=== PATIENT | female | born 1980 | race Caucasian/White ===

== ENCOUNTER 2024-06-29 17:00 | Emergency (ER) | payer OTHER, SELFPAY ==
--- NOTE | 2024-06-29 17:15 | ED_ITS ---
HPI - Fall General Chief Complaint: Fall Stated Complaint: FALL Time Seen by Provider: 06/29/24 17:04 Source: patient Mode of arrival: EMS Limitations: no limitations History of Present Illness HPI Narrative: This is a 43-year-old female who presents to the ED via EMS for chief complaint of ground level fall at a local convenience store. EMS reports patient appeared intoxicated and that her blood sugar was noted to be 28. She was given oral glucose and repeat blood sugar was up to 49 just prior to arrival. Patient admits to alcohol use today. Reports that she drank 10 beers, wine and liquor. Patient reports that she has no past medical history to speak of. Does not take any regular medications or blood glucose lowering medications. Reports that she has some spine pain from the fall today. She is unable to tell me the details of the fall. Denies recent illness or any further sites of pain or injury. Review of Systems Review of Systems: All systems as dictated in HPI Exam Narrative: GENERAL: Clinically intoxicated. Alcohol stains on her clothes. Conversational and cooperative HEAD: Normocephalic, atraumatic. EYES: PERRLA and EOMI. ENT: Nares clear, no rhinorrhea or epistaxis. Mucous membranes moist. Oropharynx without tonsillar hypertrophy exudate or other lesions. NECK: Supple. No adenopathy or masses. CHEST: No respiratory distress. Clear to auscultation. No wheezes rales or rhonchi HEART: Regular rate and rhythm. No murmur heard. Normal peripheral pulses. ABDOMEN: Soft, nontender, nondistended, normal active bowel sounds. MSK: Normal range of motion. No edema. SKIN: Warm, dry, no rash. NEURO: Clinically intoxicated. Slurring words. Alert and oriented x4. No focal deficits. PSYCH: Normal mood and affect. No SI or HI Course Vital Signs Vital signs: Vital Signs Temperature 97.8 F 06/29/24 17: Pulse Rate 100 06/29/24 17:28 Respiratory Rate 17 06/29/24 17:28 Blood Pressure 117/68 06/29/24 17:28 Pulse Oximetry 99 06/29/24 17:28 Temperature 97.8 F 06/29/24 17:28 Pulse Rate 100 06/29/24 17:28 Respiratory Rate 17 06/29/24 17:28 Blood Pressure 117/68 06/29/24 17:28 Pulse Oximetry 99 06/29/24 17:28 MDM - Fall MDM Narrative Medical decision making narrative: 43-year-old female presenting to the ED for alcohol intoxication and a fall. She arrives with stable vitals, alert oriented. During the course of the workup and after my initial examination, patient decided to elope from the department with her IV still in place. Security and police alerted. Lab Data 06/29/24 17:19 06/29/24 17:19 Labs: Lab Results 06/29/24 06/29/24 06/29/24 Range/Units 17:15 17:19 18:27 WBC 15.1 H (4.5-10.0) K/mm3 RBC 4.83 (4.2-5.4) M/mm3 Hgb 15.3 H (12.0-15.0) g/dL Hct 45.5 (37.0-47.0) % MCV 94.2 (80-100) fl MCH 31.7 (26-34) pg MCHC 33.6 (32-36) g/dl RDW 13.6 (11.5-14.5) % Plt Count 320 (150-375) k/mm3 MPV 9.4 (7.4-10.4) fl Immature Gran % (Auto) 0.3 (0-0.5) % Neut % (Auto) 65.6 (45.5-73.1) % Lymph % (Auto) 28.2 (18.3-44.2) % [place] % (Auto) 5.0 (2.6-8.5) % Eos % (Auto) 0.4 (0-4.4) % Baso % (Auto) 0.5 (0.2-1.2) % Lymph # (Auto) 4.24 H (0.9-3.2) K/mm3 [place] # (Auto) 0.8 H (0.1-0.6) K/mm3 Eos # (Auto) 0.1 (0-0.3) K/mm3 Baso # (Auto) 0.1 (0.0-0.1) K/mm3 Abs Immat Gran (auto) 0.04 H (0.00-0.031) K/mm3 Absolute Neuts (auto) 9.9 H (1.3-6.7) K/mm3 Absolute Nucleated RBC 0.000 (0.0-0.012) K/mm3 Nucleated RBC % 0.0 (0.0-0.2) % PT 14.7 (11.1-14.7) Seconds INR 1.1 APTT 23.6 (22.3-36.8) Seconds Sodium 145 (137-145) mmol/L Potassium 4.0 (3.4-5.0) mmol/L Chloride 108 H (98-107) mmol/L Carbon Dioxide 24 (22-30) mmol/L Anion Gap 13 H (4-12) mmol/L BUN 7 (7-17) mg/dL Creatinine 0.70 (0.7-1.0) mg/dL Estim Creat Clear Calc Not Reportable Estimated GFR > 60 (59 - ) Glucose 177 H (65-110) mg/dL POC Capillary Glucose 220 H (65-105) mg/dl Lactic Acid 1.7 (0.7-2.0) mmol/L Calcium 7.2 L (8.4-10.2) mg/dL Total Bilirubin 0.3 (0.2-1.3) mg/dL AST 20 (14-36) U/L ALT 13 (6-35) U/L Alkaline Phosphatase 49 (38-126) U/L Troponin I < 0.012 (0.000-0.034) ng/mL Total Protein 8.0 (6.3-8.2) g/dL Albumin 4.5 (3.5-5.1) g/dL TSH 0.373 L (0.465-4.680) uIU/mL Urine Color Yellow (Yellow) Urine Appearance Clear (Clear) Urine pH 5.5 (5.0-9.0) Ur Specific [place] 1.009 (1.001-1.035) Urine Protein Negative (Negative) mg/dL Urine Glucose (UA) 2+ H (Negative) mg/dL Urine Ketones Negative (Negative) mg/dL Ur Blood (Man) Negative (Negative) Urine Nitrate Negative (Negative) Urine Bilirubin Negative (Negative) Urine Urobilinogen 0.2 (<2.0) mg/dL Leukocyte Esterase Rfl Negative (Negative) FAUSTO/UL Urine RBC 0-2 (0-2) /hpf Urine WBC 0-5 (0-3) /hpf Ur Squamous Epith Cells Occasional (Few) /hpf Urine Bacteria 4+ H /hpf Urine Casts 0-2 Urine Opiates Screen Negative (Negative) Urine Methadone Screen Negative (Negative) Ur Barbiturates Screen Negative (Negative) Ur Phencyclidine Scrn Negative (Negative) Ur Amphetamine Screen Positive A (Negative) U Benzodiazepines Scrn Negative (Negative) Urine Cocaine Screen Negative (Negative) U Cannabinoids Screen Negative (Negative) Discharge Plan Discharge Clinical Impression: Alcohol abuse Patient Disposition: Elopement After Seen by Prov Condition: Stable Follow-up/Referrals: PHYSICIAN,HOUSE CALLS NURSE PRACTITIONER [Primary Care Provider] -
--- NOTE | 2024-06-29 17:16 | ECG_ITS ---
Test Date: 2024-06-29 17:32:18 Measurements Intervals [place] Rate: 89 P: 74 IA: 143 QRS: 79 QRSD: 90 T: 49 QT: 333 QTc: 405 Interpretive Statements SINUS RHYTHM POSSIBLE RIGHT ATRIAL ENLARGEMENT LEFT ATRIAL ENLARGEMENT CONSIDER ANTERIOR INFARCT, AGE INDETERMINATE ABNORMAL ECG No previous ECG available for comparison Electronically Signed On 06-29-2024 17:53:56 TRACKMAN by Johnny Camacho D.O.
[2024-06-29 17:26] LABS: Basophils Absolute Auto 0.1 K/mm3 (0.0-0.1); Basophils Percent Auto 0.5 % (0.2-1.2); Eosinophils Absolute Auto 0.1 K/mm3 (0-0.3); Eosinophils Percent Auto 0.4 % (0-4.4); Hematocrit 45.5 % (37.0-47.0); Hemoglobin 15.3 g/dL (12.0-15.0); Immature Granulocyte Absolute 0.04 K/mm3 (0.00-0.031); Immature Granulocyte Percent A 0.3 % (0-0.5); Lymphocytes Absolute Auto 4.24 K/mm3 (0.9-3.2); Lymphocytes Percent Auto 28.2 % (18.3-44.2); Mean Corpuscular HGB Conc 33.6 g/dl (32-36); Mean Corpuscular Hemoglobin 31.7 pg (26-34); Mean Corpuscular Volume 94.2 fl (80-100); Mean Platelet Volume 9.4 fl (7.4-10.4); Monocytes Absolute Auto 0.8 K/mm3 (0.1-0.6); Neutrophils Absolute Auto 9.9 K/mm3 (1.3-6.7); Neutrophils Percent Auto 65.6 % (45.5-73.1); Platelet Count Result 320 k/mm3 (150-375); Red Blood Count 4.83 M/mm3 (4.2-5.4); Red Cell Distribution Width 13.6 % (11.5-14.5); White Blood Count 15.1 K/mm3 (4.5-10.0)
[2024-06-29 17:28] VITALS: BP 117/68; PULSE 100; RESP 17; TEMP 36.6; O2SAT 99
[2024-06-29 17:28] LABS: Glucose Point of Care 220 mg/dl (65-105)
[2024-06-29 17:35] LABS: Bacteria Urine 4+ /hpf; Non Pathogenic Casts 0-2; RBC Urine 0-2 /hpf (0-2); Squamous Epithelial Cell Urine Occasional /hpf (Few); WBC Urine 0-5 /hpf (0-3)
[2024-06-29 17:37] LABS: Alanine Aminotransferase 13 U/L (6-35); Albumin Level 4.5 g/dL (3.5-5.1); Alkaline Phosphatase 49 U/L (38-126); Anion Gap 13 mmol/L (4-12); Aspartate Amino Transferase 20 U/L (14-36); Bilirubin,Total 0.3 mg/dL (0.2-1.3); Blood Urea Nitrogen 7 mg/dL (7-17); Calcium 7.2 mg/dL (8.4-10.2); Carbon Dioxide 24 mmol/L (22-30); Chloride 108 mmol/L (98-107); Estimated Glomerular Filt Rate > 60; Glucose 177 mg/dL (65-110); Lactic Acid Reflex 1.7 mmol/L (0.7-2.0); Sodium 145 mmol/L (137-145)
[2024-06-29 17:46] LABS: Amphetamine Screen Urine Positive (Negative); Barbiturate Screen Urine Negative (Negative); Benzodiazepines Screen Urine Negative (Negative); Cannabinoid Screen Urine Negative (Negative); Cocaine Screen Urine Negative (Negative); Methadone Screen Urine Negative (Negative); Opiate Screen Urine Negative (Negative); Phencyclidine Screen Urine Negative (Negative)
[2024-06-29 17:48] LABS: Troponin I < 0.012 ng/mL (0.000-0.034)
[2024-06-29 17:53] LABS: Add Urine Microscopic? NO; Appearance Urine Clear (Clear); Bilirubin Urine Negative (Negative); Blood Urine Negative (Negative); Color Urine Yellow (Yellow); Glucose Urine UA 2+ mg/dL (Negative); Ketones Urine Negative (Negative); Leukocyte Esterase Ur Negative LEU/UL (Negative); Nitrate Urine Negative (Negative); Protein Urine Negative (Negative); Specific Grav Ur 1.009 (1.001-1.035); Urobilinogen Urine 0.2 mg/dL (<2.0); pH Urine 5.5 (5.0-9.0)
[2024-06-29 18:07] LABS: Thyroid Stimulating Hormone 0.373 uIU/mL (0.465-4.680)
[2024-06-29 18:43] LABS: INR 1.1; Prothrombin Time 14.7 Seconds (11.1-14.7)
[2024-06-29 18:44] LABS: Partial Thromboplastin Time 23.6 Seconds (22.3-36.8)
--- NOTE | 2024-06-29 19:41 | PC.NURSE ---
THIS RN WENT TO THE PATIENT ROOM TO DO A BEDSIDE GLUCOSE TO NOTE THAT THE PATIENT AND HER VISITOR WERE NO LONGER IN THE ROOM. THIS RN CALLED RADIOLOGY TO SEE IF SHE WAS GETTING A CT. RADIOLOGY DIDN'T HAVE HER DOWN WITH THEM. THIS RN THEN ASKED INTAKE RNS IF THEY SAW THE PATIENT LEAVE THE DEPARTMENT. NO ONE HAD SEEN HER. DAVEY FROM SECURITY, AND [employer] NOTIFIED. THIS RN MADE A CALL TO THE PATIENTS PHONE NUMBER LISTED AND WAS ASKED IF SHE COULD RETURN TO THE ED TO LET US TAKE OUT HER IV. TO WHICH THE PATIENT RESPONDED I ALREADY DID, IT IS OUT SOMEWHERE IN THE STREET. SINCE PATIENT WAS UNDER THE INFLUENCE OF ALCOHOL AND AMPHETAMINES THE [employer] WAS CONTACTED AND REQUESTED A PHONE CALL BE MADE TO THE POLICE. 1939- [place] [employer] CONTACTED, GIVEN A DESCRIPTION OF THE PATIENT AND THEY STATED THAT THEY WOULD SEND OFFICERS TO COME MONITOR THE AREA FOR THE PATIENT AND HER VISITOR. 1947- [facility] CONTACTED TO REQUEST A WELFARE CHECK WITH THE PATIENT- GAVE THEM THE ADDRESS WE HAVE LISTED FOR THE PATIENT IN HER CHART. THEY STATED THAT THEY WOULD SEND OFFICERS OVER TO CONDUCT A WELFARE CHECK.
--- NOTE | 2024-06-29 22:26 | PC.NURSE ---
2226- THIS RN CALLED [facility] TO CHECK ON THE STATUS OF THE WELFARE CHECK CALL - POLICE OFFICERS WERE DISPACHED TO THE PATIENTS HOME ADDRESS LISTED IN THE CHART AND THERE WAS NO ANSWER AT THE DOOR. THIS WAS ALL THE INFORMATION THAT PD COULD PROVIDE.
== END 2024-06-29 19:56 | disposition left against medical advice (07) ==
PROVIDERS: Emergency Provider Physician Assistant
DX: F10.129 Alcohol abuse with intoxication, unspecified (principal); Y90.9 Presence of alcohol in blood, level not specified; W18.30XA Fall on same level, unspecified, initial encounter
CPT/HCPCS: 36415; 80053; 80307; 81003; 82948; 83605; 84443; 84484; 85025; 85610; 85730; 93005; 99284